=== PATIENT | male | born 1980 | race Caucasian/White ===

== ENCOUNTER 2016-11-01 12:10 | Emergency (ER) | payer OTHER ==
[~2016-11-01] VITALS: Ht 182.9 cm; Wt 77.3 kg
[2016-11-01 12:17] VITALS: BP 140/90; TEMP 98.2
[2016-11-01 13:23] VITALS: PULSE 86
[2016-11-01] MEDS ORDERED: DOXYCYCLINE 10100 MG PO (13:23)
== END 2016-11-01 13:27 | disposition home or self-care (01) ==
LOC: COL.ER 12:10
DX: H10.212 Acute toxic conjunctivitis, left eye (principal); H00.014 Hordeolum externum left upper eyelid; F17.210 Nicotine dependence, cigarettes, uncomplicated